=== PATIENT | female | born 1945 | race Caucasian/White ===

== ENCOUNTER → 2021-09-05 13:49 | Outpatient (BNVA) | payer MEDICARE, SELFPAY | PROVIDERS: PCP Internal Medicine; Visit Provider Surgery Vascular Surgery | DX: I83.11 Varicose veins of right lower extremity with inflammation (principal) | CPT/HCPCS: 99212 ==

== ENCOUNTER 2021-09-14 10:00 | Outpatient (REF) | payer MEDICARE, SELFPAY ==
--- NOTE | ~2021-09-14 | US_ITS ---
EXAMINATION: US LOWER EXTREMITY VENOUS (REFLUX EXAM), BILATERAL CLINICAL INDICATION: This is a 75-year-old female with venous insufficiency and reflux. 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 COMPARISON: None. TECHNIQUE: Color flow triplex imaging and compression Doppler was performed to evaluate both the deep and the superficial systems bilaterally. To evaluate the superficial system, the examination was performed in the upright position. Color-flow Doppler ultrasound and compression ultrasound were utilized. In addition, maneuvers were utilized to demonstrate reflux. FINDINGS: 1. DEEP VENOUS ULTRASOUND OF THE RIGHT LOWER EXTREMITY: Common Femoral Vein: Compressible, normal respiratory variation and augmented flow. Femoral vein: Compressible, normal color flow and augmentation. Popliteal Vein: Compressible, normal augmentation. Deep Reflux: There is no evidence of reflux in the deep system in either the common femoral vein or the popliteal vein. There is no evidence of a Davis's cyst. 2. SUPERFICIAL ULTRASOUND WITH DOPPLER OF RIGHT LOWER EXTREMITY: GREAT SAPHENOUS VEIN: Saphenofemoral Junction: 0.5 cm Mid Thigh: 0.3 cm Above Knee: 0.2 cm Below Knee: 0.2 cm Mid Calf: 0.2 cm Ankle: 0.1 cm GSV REFLUX: No evidence of reflux. DUPLICATED GREAT SAPHENOUS VEIN: There is a 0.2 cm duplicated lateral great saphenous vein without reflux. SMALL SAPHENOUS VEIN: Proximal: 0.2 cm Distal: 0.2 cm SSV REFLUX: No evidence of reflux. VEIN OF GIACOMINI: None Imaged. PERFORATORS: There are 0.1 cm mid thigh perforators with 812 ms of reflux. There is a 0.2 cm director of premium seat sales in the mid thigh without reflux. There is a 0.1 cm director of premium seat sales in the mid calf without reflux. VARICOSITIES: None Imaged 3. DEEP VENOUS ULTRASOUND OF THE LEFT LOWER EXTREMITY: Common Femoral Vein: Compressible, normal respiratory variation and augmented flow. Femoral Vein: Compressible, normal color flow and augmentation. Popliteal Vein: Compressible, normal augmentation. Deep Reflux: There is no evidence of reflux in the deep system in either the common femoral vein or the popliteal vein. There is no evidence of a Davis's cyst. 4. SUPERFICIAL ULTRASOUND WITH DOPPLER OF LEFT LOWER EXTREMITY: GREAT SAPHENOUS VEIN: Saphenofemoral Junction: 0.5 cm. There is no reflux. Mid Thigh: 0.3 cm. There is no reflux. Above Knee: 0.2 cm. There is no reflux. Below Knee: 0.3 cm. The reflux time is 2025 ms. Mid Calf: 0.1 cm. There is no reflux. Ankle: 0.1 cm. There is no reflux. GSV REFLUX: No evidence of reflux. DUPLICATED GREAT SAPHENOUS VEIN: None SMALL SAPHENOUS VEIN: Proximal: 0.1 cm Distal: 0.1 cm SSV REFLUX: No evidence of reflux. VEIN OF GIACOMINI: None Imaged. PERFORATORS: There is a 0.2 cm mid thigh director of premium seat sales with 2041 ms of reflux. There is a 0.3 cm proximal calf director of premium seat sales without reflux. VARICOSITIES: There are 0.4 cm varicose veins at the knee with 2226 ms of reflux. There are 0.3 cm proximal calf varicose veins with greater than one second of reflux. US/US venous duplex LE BI IMPRESSION: 1. There is a patent right great saphenous vein without evidence of reflux. 2. There is a patent right small saphenous vein without evidence of reflux. 3. There is a patent left great saphenous vein without reflux at the saphenofemoral junction or within the thigh. 4. There is a patent left small saphenous vein without reflux. 5. There are varicose veins at the left knee and in the calf with reflux.
== END 2021-09-14 10:01 | disposition home or self-care (01) ==
LOC: HO.US 10:00
PROVIDERS: PCP Internal Medicine; Visit Provider Surgery Vascular Surgery
DX: I83.11 Varicose veins of right lower extremity with inflammation (principal)
CPT/HCPCS: 93970

== ENCOUNTER → 2021-09-26 13:08 | Outpatient (BNVA) | payer MEDICARE, SELFPAY | PROVIDERS: PCP Internal Medicine; Visit Provider Surgery Vascular Surgery | DX: I83.11 Varicose veins of right lower extremity with inflammation (principal) | CPT/HCPCS: 99212 ==